=== PATIENT | female | born 2005 | race Caucasian/White ===

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

== ENCOUNTER → 2025-10-13 | Outpatient (CLI) | payer OTHER, SELFPAY | END | disposition home or self-care (01) | LOC: LABSPEC 15:37 | DX: R09.81 Nasal congestion (principal) | CPT/HCPCS: 87070; 87205 ==

== ENCOUNTER 2025-10-31 09:43 | Emergency (ER) | payer OTHER, SELFPAY ==
[2025-10-31 09:44] VITALS: BP 121/79; PULSE 100; RESP 16; TEMP 36.1; O2SAT 100; BMI 24.7
--- NOTE | 2025-10-31 10:00 | EX.ED.DYSGE1 ---
HPI History of Present Illness Chief Complaint: Ear Problem Informant: patient Narrative Narrative: Patient is a 20-year-old female presenting with bilateral otalgia for 2 months. - Initially affected one ear, then progressed to both. - Describes pain as popping and cracking and really annoying. - Reports muffled hearing and mild dizziness. - Right ear is more tender and feels worse than the left. - Denies fever, congestion, or seasonal allergies. - Has been evaluated by ENT 2 weeks ago and urgent care once; ENT suggested a viral etiology per pt. - Completed courses of cefdinir, amoxicillin (last dose ~1 month ago), prednisone, ear drops, and Advil without relief. [facility] Medical History Anxiety and depression ADHD Home Medications ?Medication ?Instructions ?Recorded ?Last Taken ?Type bupropion HCl 150 mg 24 hr tablet, 150 mg PO DAILY 12/01/24 Unknown History extended release escitalopram oxalate 20 mg tablet 20 mg PO DAILY 12/01/24 Unknown History (Lexapro) ibuprofen 600 mg tablet 600 mg PO Q6H PRN PRN pain #20 12/01/24 Unknown Rx TABLETS methylphenidate HCl 27 mg 27 mg PO DAILY 12/01/24 Unknown History tablet,extended release 24 hr (Concerta) clarithromycin 500 mg tablet 500 mg PO Q12H #7 tabs 10/31/25 Unknown Rx Allergy/AdvReac Type Severity Reaction Status Date / Time codeine AdvReac VOMITING Verified 10/31/25 09:44 Surgical History H/O wisdom tooth extraction History of tonsillectomy and adenoidectomy Social History housing: other current occupational status: student Smoking Status: Never smoker ROS ROS ED Constitutional Constitutional ED: Denies chills or fever(s) ENT ENT ED: Reports ear pain bilateral and sinus pressure; Denies headache(s), nasal congestion, rhinorrhea or sore throat Cardiovascular Cardiovascular: Denies chest pain Respiratory/Chest Respiratory/Chest: Denies cough or dyspnea Gastrointestinal Gastrointestinal: Denies abdominal pain, nausea or vomiting Musculoskeletal Musculoskeletal: Denies neck pain Integumentary Denies rash Neurologic Neurologic: Denies headache(s) EXAM Physical Exam Const Vital Signs: 10/31/25 09:44 Temperature 96.9 F L Temperature Source Temporal Pulse Rate 100 Respiratory Rate 16 Blood Pressure 121/79 H Blood Pressure Mean 93 Pulse Ox 100 Oxygen Delivery Method Room Air Positive well nourished and well developed General Appearance ED: well developed and NAD HEENT Reports moist mucous membranes HEENT Narrative: No significant sinus tenderness. Right TM is erythematous and dulled, not bulging. EAC normal. Left TM and EAC unremarkable no erythema. No sign of any perforated TMs. Mastoids not swollen not erythematous and otherwise unremarkable nontender. Eyes PERRL and EOMs intact bilaterally Neck no lymphadenopathy and supple Resp normal respiratory effort Neuro oriented x3, CN's II-XII intact bilaterally, no sensory deficits noted and gait normal Motor Exam: strength 5/5 throughout Psych mental status grossly normal Skin no rashes or lesions noted and no wounds MDM MDM MDM Narrative Medical decision making narrative: Patient appears well on exam, with normal vital signs. There are signs of acute otitis media on the right, but the left ear appears unremarkable. The external auditory canals are normal bilaterally. There are no signs of otitis externa or mastoiditis. The patient states that cefdinir and amoxicillin did not help. We will try a macrolide antibiotic, but if viral this will not cure this, and I reinforced that she will need to follow-up with otolaryngology. I also advised nasal steroid for the next week or 2 to see if that helps solve any eustachian tube dysfunction she may have. Discharge Plan Triage Chief Complaint: Ear Problem ED Provider: Yadiel Noe Dx/Rx/DC Orders Clinical Impression: Acute otitis media, right, Acute dysfunction of both eustachian tubes, Otalgia of both ears Instructions: ED Otitis Media Adult Prescriptions: New clarithromycin 500 mg tablet 500 mg PO Q12H Qty: 7 0RF No Action escitalopram oxalate [Lexapro] 20 mg tablet 20 mg PO DAILY methylphenidate HCl [Concerta] 27 mg tablet extended release 24hr 27 mg PO DAILY bupropion HCl 150 mg tablet extended release 24 hr 150 mg PO DAILY ibuprofen 600 mg tablet 600 mg PO Q6H PRN PRN (Reason: pain) Qty: 20 0RF Primary Care Provider: VIET BURGOS Referrals: Sameer Dupree MD [Med Staff - Active Staff, Ear Nose Throat (ENT)] - 3-5 Days if not improving Activity Restrictions/Additional Instructions: Buy fluticasone nasal spray [id number], use twice daily 1 spray each nostril for the next 1-2 weeks along with the prescription antibiotic. Print Language: Moldovan Disposition Disposition: Home, Self Care
== END 2025-10-31 10:18 | disposition home or self-care (01) ==
PROVIDERS: Emergency Provider Emergency Medicine; Visit Provider Emergency Medicine
DX: H66.91 Otitis media, unspecified, right ear (principal); H69.93 Unspecified Eustachian tube disorder, bilateral; H92.03 Otalgia, bilateral
CPT/HCPCS: 99282

== ENCOUNTER 2025-11-02 14:24 | Emergency (ER) | payer OTHER, SELFPAY ==
[2025-11-02 14:26] VITALS: BP 137/86; PULSE 98; RESP 16; TEMP 36.9; O2SAT 100; BMI 26.1
--- NOTE | 2025-11-02 14:45 | EX.ED.DYSGE1 ---
HPI History of Present Illness Chief Complaint: Nausea/Vomiting/Diarrhea PFSH PFSH Medical History Anxiety and depression ADHD Home Medications ?Medication ?Instructions ?Recorded ?Last Taken ?Type bupropion HCl 150 mg 24 hr tablet, 150 mg PO DAILY 12/01/24 Unknown History extended release escitalopram oxalate 20 mg tablet 20 mg PO DAILY 12/01/24 Unknown History (Lexapro) ibuprofen 600 mg tablet 600 mg PO Q6H PRN PRN pain #20 12/01/24 Unknown Rx TABLETS methylphenidate HCl 27 mg 27 mg PO DAILY 12/01/24 Unknown History tablet,extended release 24 hr (Concerta) clarithromycin 500 mg tablet 500 mg PO Q12H #7 tabs 10/31/25 Unknown Rx ondansetron 4 mg disintegrating 4 mg PO Q8H PRN PRN Nausea #10 tabs 11/02/25 Unknown Rx tablet Allergy/AdvReac Type Severity Reaction Status Date / Time codeine AdvReac VOMITING Verified 11/02/25 14:29 Surgical History H/O wisdom tooth extraction History of tonsillectomy and adenoidectomy Social History housing: other current occupational status: student Smoking Status: Never smoker EXAM Physical Exam Const Vital Signs: 11/02/25 14:26 11/02/25 15:35 Temperature 98.4 F 99 F Temperature Source Oral Oral Pulse Rate 98 102 H Respiratory Rate 16 16 Blood Pressure 137/86 H 118/77 Blood Pressure Mean 103 90 Pulse Ox 100 99 Oxygen Delivery Method Room Air MDM MDM MDM Narrative Medical decision making narrative: HISTORY OF PRESENT ILLNESS: Chief complaint: Nausea 20-year-old female presents with concern for nausea vomiting diarrhea since this morning. Started 6 hours ago. She thinks she may have gotten food poisoning. She also notes recent antibiotics for infection. She further states she think she may have food poisoning. She mentions eating questionable meal yesterday. Denies sick contacts. Notes diffuse abdominal pain. Denies blood in her vomit, denies blood in her stool. States he is on her period does not think she is . Denies history of abdominal surgeries. No she is currently on an antibiotic for an ear infection. She further denies palpitations, shortness of breath or chest pain. Denies syncope REVIEW OF SYSTEMS: Pertinent positives: Nausea vomiting diarrhea, abdominal pain Pertinent negatives: Hematemesis, hematuria PHYSICAL EXAM: Nursing triage notes reviewed, Vital signs reviewed Constitutional: please see [facility] HENT: MMM Eyes: Pupils equal round and reactive to light, Extraocular muscles intact Neck: No stridor, no JVD, full neck ROM Lungs: Clear to auscultation, No wheezing or rales. No increased work of breathing, no conversational dyspnea, no accessory muscle use, no nasal flaring. No respiratory distress noted Heart: Regular rate and rhythm, No murmurs, No rubs and No gallops, 2+ distal pulses (radial, femoral, posterior tibial) in all extremities Abdomen: Soft, there is no reproducible tenderness, rigidity, rebound or guarding, no obvious peritoneal signs, no palpable pulsatile abdominal masses, no auscultated abdominal bruit : No CVAT Extremities: No edema Neuro: No new focal neurological deficits, cranial nerves II through XII intact, 5/5 strength in all present extremities. Intact sensation to light touch in all present extremities Skin: No rash or lesions noted MEDICAL DECISION MAKING: Chief Complaint: please see HPI External records reviewed: Reviewed prior imaging studies: Reviewed pelvic ultrasound from November 2024. It is normal Factors affecting care: History of otitis media agrees antibiotic Social determinants of health: Denies marijuana use History obtained from others: none Consults: none [facility] Narrative: The patient was initially hemodynamically stable, afebrile and nontoxic-appearing. Exam with a benign abdomen. No appreciable tenderness. I considered the following differential diagnosis: Foodborne illness, viral gastroenteritis, , acute surgical intra-abdominal pathology (i.e. acute appendicitis amongst other) I obtained broad lab to further determine if the patient was suffering from a life-threatening etiology. Initially treat the patient with IV fluids, IV Zofran ALL IMAGES (IF OBTAINED) HAVE BEEN PERSONALLY REVIEWED AND INTERPRETED BY MYSELF. CBC with leukocytosis suggestive of mild systemic inflammation, no anemia or thrombocytopenia CMP without evidence of acute kidney injury, significant electrolyte abnormality, anion gap to suggest end organ hypo-perfusion, no evidence of metabolic acidosis with a normal bicarbonate, no evidence of hepatobiliary obstructive pathology. Serum test is Repeat abdominal exam remained benign. Low suspicion for acute surgical intra-abdominal process at this time given benign abdominal exam. Patient is able tolerate p.o. She is likely suffering from foodborne illness versus viral illness. Encouraged her to discontinue antibiotic as she has had symptoms for months in terms of otitis media. Encouraged Zofran as needed. Encouraged ENT follow-up. The patient and/or family, caregivers express understanding. The patient and/or family, caregivers agrees with the plan. Shared decision making: I will have a discussion with the patient and or visitors regarding risk/benefits of further testing or admission. They will be made aware of of the risk/benefits inherent in this decision they will be given the opportunity to voice understanding. Total critical care time today provided was at least 0 minutes. This excludes separately billable procedures. Critical care time (if documented) is secondary to the patient having high probability of clinically significant/life threatening deterioration in the patient's condition which required my urgent intervention. Impression: 1. Nausea vomiting diarrhea 2. Dehydration Dispo: Discharge home This note was generated with [employer] dictation software. It may contain incorrect words, spelling, and punctuation that were not noted in review of the chart prior to signing. Lab Data Labs: Laboratory Results - last 24 hr 11/02/25 15:33 WBC 11.1 H RBC 5.12 Hgb 14.6 Hct 43.7 MCV 85.4 MCH 28.5 MCHC 33.4 RDW Std Deviation 40.7 RDW Coeff of Javier 13.1 Plt Count 279 MPV 8.7 Immature Gran % (Auto) 0.200 Neut % (Auto) 90.2 H Lymph % (Auto) 4.5 L [place] % (Auto) 3.6 Eos % (Auto) 1.2 Baso % (Auto) 0.3 Absolute Neuts (auto) 10.1 H Absolute Lymphs (auto) 0.50 L Nucleated RBC % 0 Sodium 141 Potassium 3.9 Chloride 105 Carbon Dioxide 23.2 Anion Gap 12 BUN 15 Creatinine 0.74 Estim Creat Clear Calc 107.11 Est GFR (MDRD) Non-Af 118 BUN/Creatinine Ratio 19.9 Glucose 102 H Calcium 9.4 Total Bilirubin 0.54 AST 21 ALT 21 Alkaline Phosphatase 72 Total Protein 7.4 Albumin 4.6 Globulin 2.8 Albumin/Globulin Ratio 1.7 Lipase 21 Serum , Qual NEGATIVE Discharge Plan Triage Chief Complaint: Nausea/Vomiting/Diarrhea ED Provider: Freddie Herron Dx/Rx/DC Orders Instructions: ED Vomit & Diarrhea [place] Adult Prescriptions: New ondansetron 4 mg tablet,disintegrating 4 mg PO Q8H PRN PRN (Reason: Nausea) Qty: 10 0RF No Action clarithromycin 500 mg tablet 500 mg PO Q12H Qty: 7 0RF escitalopram oxalate [Lexapro] 20 mg tablet 20 mg PO DAILY methylphenidate HCl [Concerta] 27 mg tablet extended release 24hr 27 mg PO DAILY bupropion HCl 150 mg tablet extended release 24 hr 150 mg PO DAILY ibuprofen 600 mg tablet 600 mg PO Q6H PRN PRN (Reason: pain) Qty: 20 0RF Primary Care Provider: VIET BURGOS Referrals: Sameer Dupree MD [Med Staff - Active Staff, Ear Nose Throat (ENT)] Activity Restrictions/Additional Instructions: Thank you for trusting us with your care today! Please discontinue taking antibiotic during your acute illness. Please begin taking Zofran as needed for nausea vomiting control. Please take Tylenol (2 pills, 650 mg), ibuprofen (2 pills, 400 mg) every 6 hours as needed for pain and fever control. Please return to the emergency department if your symptoms change or worsen. Please follow up with ENT (Dr. Dupree) for further outpatient evaluation and management. Print Language: Burkinan Disposition Disposition: Home, Self Care
[2025-11-02] MEDS: Famotidine 200 MG/20 ML MDV 20 MG in 0.9% Normal Saline (Pres. free 8 ML 300 MG IV (15:28)
[2025-11-02] MEDS: 0.9% Normal Saline (1000mL) 1,000 ML 1000 ML IV (15:28)
[2025-11-02 15:35] VITALS: BP 118/77; PULSE 102; RESP 16; TEMP 37.2; O2SAT 99
[2025-11-02 15:43] LABS: Hematocrit 43.7 % (37-47); Hemoglobin 14.6 g/dL (12.0-15.0); Immature Granulocytes Count 0.020 X10^3/uL (0.0-0.0); Mean Corp Hgb Conc 33.4 g/dL (32-36); Mean Corpuscular Volume 85.4 fL (81-99); Mean Platelet Vol. 8.7 fl (6.2-12.0); NRBC Flagged by Analyzer 0 % (0-5); POSITIVE DIFFERENTIAL YES; Platelet Count 279 K/mm3 (150-450); RBC Distribution Width CV 13.1 % (11.6-14.6); RBC Distribution Width SD 40.7 fl (35.1-43.9); Red Blood Count 5.12 M/mm3 (4.2-5.4); White Blood Count 11.1 K/mm3 (4.4-11.0)
[2025-11-02 16:18] LABS: AST(SGOT) 21 U/L (<=31); Alanine Aminotransfer ALT/SGPT 21 U/L (<=34); Albumin, Serum 4.6 g/dL (3.5-5.0); Alkaline Phosphatase 72 U/L (35-104); Anion Gap 12 (5-15); BUN 15 mg/dL (4-19); BUN/Creat Ratio 19.9 RATIO (10-20); Calcium,Total 9.4 mg/dL (7.6-11.0); Carbon Dioxide 23.2 mmol/L (21.0-32.0); Chloride 105 mmol/L (98-108); Estimated Creatinine Clearance 107.11 ml/min (50-250); Globulin 2.8 g/dL (2.2-4.2); Glucose 102 mg/dL (70-99); Lipase 21 U/L (13-75); Potassium 3.9 mmol/L (3.3-5.1)
[2025-11-02 16:23] LABS: Internal QC Validated? YES +Cl - CLEAR BKGD; Pregnancy, Serum, hCG Quali. NEGATIVE Negative
[2025-11-02 16:28] VITALS: BP 108/74; PULSE 106; RESP 18; O2SAT 99
[2025-11-02 16:48] VITALS: BP 106/79; PULSE 100; RESP 18; TEMP 37.2; O2SAT 100
== END 2025-11-02 16:57 | disposition home or self-care (01) ==
PROVIDERS: Emergency Provider Emergency Medicine; Visit Provider Emergency Medicine
DX: R11.2 Nausea with vomiting, unspecified (principal); E86.0 Dehydration; R19.7 Diarrhea, unspecified; R10.84 Generalized abdominal pain; D72.829 Elevated white blood cell count, unspecified
CPT/HCPCS: 80053; 83690; 84703; 85025; 96365; 96375; 99285; J2405